=== PATIENT | male | born 1970 | race Caucasian/White ===

== ENCOUNTER 2020-12-24 20:33 | Emergency (ER) | payer MEDICAID ==
[~2020-12-24] VITALS: Ht 182.9 cm; Wt 140.6 kg
[2020-12-24 20:41] VITALS: BP_SYST 120
[2020-12-24] MEDS ORDERED: METF-518 PO (20:48)
[2020-12-24 21:27] LABS: BASOPHILS # (AUTO) 0.1 K/uL (0.0-0.2); BASOPHILS % (AUTO) 0.5 % (0.0-2.0); EOSINOPHILS # (AUTO) 0.2 K/uL (0.0-0.4); EOSINOPHILS % (AUTO) 1.8 % (0.0-4.0); HEMATOCRIT 49.1 % (36-54); HEMOGLOBIN 16.5 g/dL (14.0-18.0); LYMPHOCYTES % (AUTO) 28.7 % (20.5-51.5); MEAN CORPUSCULAR HEMOGLOBIN 27 pg (27-31); MEAN CORPUSCULAR HGB CONC 34 % (32-36); MEAN CORPUSCULAR VOLUME 81 fL (79.0-98.0); MONOCYTES # (AUTO) 0.8 K/uL (0.0-1.0); MONOCYTES % (AUTO) 7.4 % (1.7-9.3); NEUTROPHILS # (AUTO) 6.5 K/uL (1.8-7.7); NEUTROPHILS % (AUTO) 61.6 % (40.0-70.0); PLATELET COUNT (AUTO) 193 K/uL (130-430); RED BLOOD CELL COUNT(AUTO) 6.08 MIL/uL (4.2-6.2); RED CELL DISTRIBUTION WIDTH 14.1 % (9.0-15.0); WHITE BLOOD COUNT (AUTO) 10.6 K/uL (4.8-10.8)
[2020-12-24 21:45] LABS: ANION GAP 11 (5-15); CHLORIDE 99 mmol/L (98-107); GLUCOSE 378 mg/dL (70-99); POTASSIUM 4.3 mmol/L (3.5-5.1); SODIUM SERUM 137 mmol/L (136-145)
[2020-12-24 21:46] LABS: CREATININE 1.23 mg/dL (0.55-1.30); GFR AFRICAN AMERICAN 80 mL/min (>90); UREA NITROGEN, BLOOD 22 mg/dL (8-21)
[2020-12-24 21:54] LABS: TOTAL BILIRUBIN 0.3 mg/dL (0.0-1.0)
[2020-12-24 21:55] LABS: ALANINE AMINOTRANSFERASE 46 U/L (12-78); ALBUMIN 3.2 g/dL (3.4-4.8); ASPARTATE AMINOTRANSFERASE 25 U/L (10-37)
[2020-12-24] MEDS: NACL 0.9% 1,000 ML IV ONE ×2 (22:25→23:37)
[2020-12-24] MEDS: INSULIN REGULAR, HUMAN 10 UNITS/0.1 ML INJ IVP ONE (23:30)
[2020-12-25 01:52] VITALS: BP_SYST 136
== END 2020-12-25 01:52 | disposition home or self-care (01) ==
LOC: SED 20:33
DX: M79.89 Other specified soft tissue disorders (principal); I10 Essential (primary) hypertension; I48.91 Unspecified atrial fibrillation; E11.9 Type 2 diabetes mellitus without complications
CPT/HCPCS: 36415; 80053; 82550; 82962; 83880; 84484; 85025; 85379; 93971; 96361 ×2; 96374; 99285; J7030; J1815